=== PATIENT | male | born 2000 | race Hispanic/Latino ===

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

== ENCOUNTER 2020-02-06 20:08 | Inpatient (IN) | payer OTHER ==
[~2020-02-06] VITALS: Ht 177.8 cm; Wt 98.9 kg
[2020-02-06] MEDS ORDERED: SODIUM CHLORIDE 0.9% 1000ML 1,000 ML IV SCH (20:45)
[2020-02-06] MEDS: KETOROLAC TROMETHAMINE 30 MG/ML VIAL IV NR (21:27)
[2020-02-06 21:38] LABS: BASOPHILS # (AUTO) 0.1 (0.0-0.1); BASOPHILS % 0.3 % (0.0-1.0); EOSINOPHILS # (AUTO) 0.1 (0.0-0.4); EOSINOPHILS % 0.3 % (0.0-6.0); HEMATOCRIT 41.5 % (38.2-49.6); LYMPHOCYTES # (AUTO) 2.3 (1.0-3.2); LYMPHOCYTES % 14.9 % (18.0-39.1); MEAN CORPUSCULAR HEMOGLOBIN 30.7 pg (28-32); MEAN CORPUSCULAR HGB CONC 33.7 g/dL (31-35); MONOCYTES # (AUTO) 1.3 (0.2-0.8); MONOCYTES % 8.6 % (4.4-11.3); NEUTROPHILS # (AUTO) 11.4 (2.1-6.9); NEUTROPHILS % 75.6 % (38.7-80.0); PLATELET COUNT 304 x10e3/uL (140-360); RED BLOOD COUNT 4.56 x10e6/uL (4.3-5.7); RED CELL DISTRIBUTION WIDTH 12.9 % (11.7-14.4)
[2020-02-06 21:44] LABS: AMPHETAMINES SCREEN,URINE NEGATIVE (NEGATIVE); BENZODIAZEPINES SCREEN,URINE NEGATIVE (NEGATIVE); BILIRUBIN,URINE NEGATIVE (NEGATIVE); CLARITY,URINE SL CLOUDY (CLEAR); COLOR,URINE YELLOW (YELLOW); KETONES,URINE NEGATIVE (NEGATIVE); LEUKOCYTE ESTERASE ,URINE NEGATIVE (NEGATIVE); NITRITE,URINE NEGATIVE (NEGATIVE); PHENCYCLIDINE SCREEN,URINE NEGATIVE (NEGATIVE); PROTEIN,URINE DIPSTICK NEGATIVE (NEGATIVE); URINE UROBILINOGEN 1 mg/dL (0.2 - 1)
[2020-02-06 21:54] LABS: ALANINE AMINOTRANSFERASE 12 IU/L (0-55); ALBUMIN 3.9 g/dL (3.5-5.0); ALKALINE PHOSPHATASE 100 IU/L (40-150); ANION GAP 12.8 mmol/L (8-16); BLOOD UREA NITROGEN 13 mg/dL (7-26); BUN/CREATININE RATIO 9 (6-25); CALCIUM 9.7 mg/dL (8.4-10.2); CARBON DIOXIDE 26 mmol/L (22-29); CHLORIDE 102 mmol/L (98-107); CREATININE, SERUM 1.37 mg/dL (0.72-1.25); EST GLOMERULAR FILTRATION RATE > 60 ML/MIN (60-); GLUCOSE 92 mg/dL (74-118); POTASSIUM 3.8 mmol/L (3.5-5.1); SODIUM 137 mmol/L (136-145)
[2020-02-06 21:56] LABS: AMORPHOUS SEDIMENT,URINE MANY (FEW); BACTERIA,URINE FEW /HPF
--- NOTE | 2020-02-06 22:17 | Emergency Department Note ---
History of Present Illnes History of Present Illness Chief Complaint: Abdominal Complaints History of Present Illness This is a 20 year old male arrived to the ED with complaints of rt lower quadrant pain for 2 days radiating to his scrotum. Pt also complaining of n/v. Chief Complaint Comment Patient c/o RLQ pain that started Wednesday morning at about 0300. Patient c/o intermittent N/V without fever. No distress noted at this time. Historian: Patient Arrival Mode: Car Onset (how long ago): minute(s) Onset quality: unable to specify Duration (how long): week(s) Timing of current episode: intermittent Progression: waxing and waning Chronicity: new Context: recent surgery, recent immobilization, trauma/injury, new medications, hx of DVT/PE Relieving factors: none Exacerbating factors: movement Past Medical/Family History Physician Review I have reviewed the patient's past medical and family history. Any updates have been documented here. Past Medical History Recent Fever: No Clinical Suspicion of Infectio: No New/Unexplained Change in Ment: No Past Medical History: None Past Surgical History: None Social History Smoking Cessation: Never Smoker Alcohol Use: Occasional Any Illegal Drug Use: No TB Exposure/Symptoms: No Physically hurt or threatened: No Family History Family history of heart diseas: No Other Any Pre-Existing Lines (PICC,: No Is patient up to date on immun: No Review of Systems Review of Systems Constitutional: no symptoms EENTM: no symptoms Cardiovascular: no symptoms Respiratory: no symptoms Gastrointestinal: no symptoms Genitourinary: no symptoms Musculoskeletal: no symptoms, back pain Neurological: no symptoms Psychological: no symptoms Endocrine: no symptoms Hematological/Lymphatic: no symptoms Review of other systems All other systems reviewed and negative. Physical Exam Related Data Allergies: Coded Allergies: No Known Allergies (Unverified , 12/15/17) Triage Vital Signs Vital Signs Date Time Temp Pulse Resp B/P (MAP) Pulse Ox O2 Delivery O2 Flow Rate FiO2 02/06/20 20:33 99.5 86 20 150/80 96 Vital signs reviewed: Yes Physical Exam CONSTITUTIONAL Constitutional: well-developed, well-nourished HENT HENT: normocephalic, atraumatic, oropharynx clear/moist, nose normal HENT L/R: left ext ear normal, right ext ear normal EYES Eyes: PERRL, conjunctivae normal NECK Neck: ROM normal PULMONARY Pulmonary: effort normal, breath sounds normal CARDIOVASCULAR Cardiovascular: regular rhythm, heart sounds normal, capillary refill normal, normal rate GASTROINTESTINAL Abdominal: soft, tender (rt lower quadrant tenderness, +psoas sign ) GENITOURINARY Genitourinary: exam deferred SKIN Skin: warm, dry MUSCULOSKELETAL Musculoskeletal: ROM normal NEUROLOGICAL Neurological: alert, oriented x 3, no gross motor or sensory deficits PSYCHOLOGICAL Psychological: mood/affect normal, judgement normal Results Laboratory Result Diagram: 02/06/20211902/06/202119 Laboratory Laboratory Tests Test 02/06/20 21:20 02/06/20 20:26 White Blood Count 15.15 x10e3/uL (4.8-10.8) Red Blood Count 4.56 x10e6/uL (4.3-5.7) Hemoglobin 14.0 g/dL (14.0-18.0) Hematocrit 41.5 % (38.2-49.6) Mean Corpuscular Volume 91.0 fL (81-99) Mean Corpuscular Hemoglobin 30.7 pg (28-32) Mean Corpuscular Hemoglobin Concent 33.7 g/dL (31-35) Red Cell Distribution Width 12.9 % (11.7-14.4) Platelet Count 304 x10e3/uL (140-360) Neutrophils (%) (Auto) 75.6 % (38.7-80.0) Lymphocytes (%) (Auto) 14.9 % (18.0-39.1) Monocytes (%) (Auto) 8.6 % (4.4-11.3) Eosinophils (%) (Auto) 0.3 % (0.0-6.0) Basophils (%) (Auto) 0.3 % (0.0-1.0) Neutrophils # (Auto) 11.4 (2.1-6.9) Lymphocytes # (Auto) 2.3 (1.0-3.2) Monocytes # (Auto) 1.3 (0.2-0.8) Eosinophils # (Auto) 0.1 (0.0-0.4) Basophils # (Auto) 0.1 (0.0-0.1) Absolute Immature Granulocyte (auto 0.05 x10e3/uL (0-0.1) Sodium Level 137 mmol/L (136-145) Potassium Level 3.8 mmol/L (3.5-5.1) Chloride Level 102 mmol/L (98-107) Carbon Dioxide Level 26 mmol/L (22-29) Anion Gap 12.8 mmol/L (8-16) Blood Urea Nitrogen 13 mg/dL (7-26) Creatinine 1.37 mg/dL (0.72-1.25) Estimat Glomerular Filtration Rate > 60 ML/MIN (60-) BUN/Creatinine Ratio 9 (6-25) Glucose Level 92 mg/dL (74-118) Calcium Level 9.7 mg/dL (8.4-10.2) Total Bilirubin 0.7 mg/dL (0.2-1.2) Aspartate Amino Transf (AST/SGOT) 14 IU/L (5-34) Alanine Aminotransferase (ALT/SGPT) 12 IU/L (0-55) Alkaline Phosphatase 100 IU/L (40-150) Total Protein 7.7 g/dL (6.5-8.1) Albumin 3.9 g/dL (3.5-5.0) Globulin 3.8 g/dL (2.3-3.5) Albumin/Globulin Ratio 1.0 (0.8-2.0) Urine Color Yellow (YELLOW) Urine Clarity Sl cloudy (CLEAR) Urine pH 7.5 (5 - 7) Urine Specific [place] 1.025 (1.010-1.025) Urine Protein Negative (NEGATIVE) Urine Glucose (UA) Negative (NEGATIVE) Urine Ketones Negative (NEGATIVE) Urine Blood Negative (NEGATIVE) Urine Nitrite Negative (NEGATIVE) Urine Bilirubin Negative (NEGATIVE) Urine Urobilinogen 1 mg/dL (0.2 - 1) Urine Leukocyte Esterase Negative (NEGATIVE) Urine RBC None /HPF (0-5) Urine WBC None /HPF (0-5) Urine Epithelial Cells None /LPF (NONE) Urine Amorphous Sediment Many (FEW) Urine Bacteria Few /HPF (NONE) Urine Opiates Screen Negative (NEGATIVE) Urine Methadone Screen Negative (NEGATIVE) Urine Barbiturates Screen Negative (NEGATIVE) Urine Phencyclidine Screen Negative (NEGATIVE) Urine Amphetamines Screen Negative (NEGATIVE) Urine Methamphetamines Screen Negative (NEGATIVE) Urine Benzodiazepines Screen Negative (NEGATIVE) Urine Cocaine Screen Negative (NEGATIVE) Urine Cannabinoids Screen Negative (NEGATIVE) Lab results reviewed: Yes Imaging Imaging results reviewed: Yes Imaging Comments KIDNEYS/URETERS: Hypoenhancement of the right kidney with mild right hydronephrosis and hydroureter. Obstructing 3 mm right distal ureteral stone. Minimal right perinephric stranding. Subcentimeter left renal hypodensities are too small to characterize, but likely represent cysts. GI TRACT: No evidence of wall thickening or distension. Mildly dilated appendix, measuring up to 8 mm without surrounding inflammatory changes. PELVIC ORGANS/BLADDER: Unremarkable. LYMPH NODES: No lymphadenopathy. VESSELS: Unremarkable. PERITONEUM / RETROPERITONEUM: No free air or fluid. BONES AND SOFT TISSUES: Unremarkable. CONCLUSION: Obstructing 3 mm right distal ureteral stone with mild right hydronephrosis. Mildly dilated appendix, measuring up to 8 mm without surrounding inflammatory changes to suggest appendicitis. Diagnostics Tests Diagnostic test(s) reviewed: Yes Critical Care Time Subsequent provider I assumed direction of critical care for this patient from another provider of my specialty. Assessment & Plan Reassessment Reassessment Pt re-evaluated at bedside: informed of all labs/imaging Assessment & Plan Final Impression: (1) Hydronephrosis with urinary obstruction due to ureteral calculus Assessment & Plan 20 M with RLQ pain. concerns for surgical abdomen cbc, cmp CTAP admit IVF, antibitoics Depart Disposition: ADMITTED Last Vital Signs Date Time Temp Pulse Resp B/P (MAP) Pulse Ox O2 Delivery O2 Flow Rate FiO2 02/06/20 21:28 82 151/84 98 02/06/20 20:33 99.5 20 Home Meds No Active Prescriptions or Reported Meds Medications in the ED Sodium Chloride 1,000 ml @ 0 mls/hr Q0M IV Last administered on 02/06/20at 21:27; Admin Dose 999 MLS/HR; Start 02/06/20 at 20:45; Stop 03/07/20 at 20:44 Ketorolac Tromethamine 30 mg ONCE IV Last administered on 02/06/20at 21:27; Admin Dose 30 MG; Start 02/06/20 at 21:00; Stop 02/06/20 at 22:59 BRENT MUSE DO February 06, 2020 22:17
[2020-02-06] MEDS ORDERED: SODIUM CHLORIDE 0.9% 50ML 50 ML ONE (22:28)
[2020-02-06] MEDS ORDERED: IOPAMIDOL 370 MG/ML 200 ML INFUS..BTL INJ ONE (22:28)
--- NOTE | 2020-02-06 22:53 | Diagnostic Imaging Report ---
EXAM: CT Abdomen and Pelvis WITH contrast INDICATION: Abdominal Pain COMPARISON: None. TECHNIQUE: Abdomen and pelvis were scanned utilizing a multidetector helical scanner from the lung base to the pubic symphysis after administration of IV contrast. Coronal and sagittal reformations were obtained. Routine protocol was performed. Scan was performed when during portal venous phase. IV CONTRAST: 100 cc of Isovue-370 ORAL CONTRAST: None COMPLICATIONS: None RADIATION DOSE: Total DLP: 590.9 mGy*cm Estimated effective dose: (DLP x 0.015 x size factor) mSv CTDIvol has been reviewed. It is below the limits set by the Radiation Protocol Committee (RPC). FINDINGS: LINES and TUBES: None. LOWER THORAX: Mild patchy bibasilar opacities, likely atelectasis. HEPATOBILIARY: No evidence of focal lesion. No biliary ductal dilation. GALLBLADDER: No radio-opaque stones or sludge. No wall thickening. SPLEEN: No splenomegaly. PANCREAS: No focal masses or ductal dilatation. ADRENALS: No adrenal nodules KIDNEYS/URETERS: Hypoenhancement of the right kidney with mild right hydronephrosis and hydroureter. Obstructing 3 mm right distal ureteral stone. Minimal right perinephric stranding. Subcentimeter left renal hypodensities are too small to characterize, but likely represent cysts. GI TRACT: No evidence of wall thickening or distension. Mildly dilated appendix, measuring up to 8 mm without surrounding inflammatory changes. PELVIC ORGANS/BLADDER: Unremarkable. LYMPH NODES: No lymphadenopathy. VESSELS: Unremarkable. PERITONEUM / RETROPERITONEUM: No free air or fluid. BONES AND SOFT TISSUES: Unremarkable. CONCLUSION: Obstructing 3 mm right distal ureteral stone with mild right hydronephrosis. Mildly dilated appendix, measuring up to 8 mm without surrounding inflammatory changes to suggest appendicitis. Signed by: Dr. Luna Aburto MD on 02/06/2020 10:50 PM
[2020-02-06] MEDS ORDERED: PIPER-TAZ 3.375 GM 50 ML IV STA (23:01)
[2020-02-06] MEDS ORDERED: ONDANSETRON HCL INJ 2MG/ML 2ML 2 MG/ML VIAL IV PRN (23:15)
[2020-02-06] MEDS ORDERED: MORPHINE SULFATE INJ 4 MG/ML INJ 1ML IV PRN (23:30)
[2020-02-07] VITALS (8 sets, daily range): BP systolic 122–148; BP diastolic 74–85
--- NOTE | 2020-02-07 01:00 | NUR ---
Patient received via stretcher. AAO x 4. Patient had no complaints of pain. Respirations even and non-labored. Admission history obtained. Initial physical assessment conducted. Patient oriented to room, call light and plan of care. Safety measures implemented. Patient instructed to call for assistance when needed. Call light within reach.
--- NOTE | 2020-02-07 07:00 | NUR ---
Patient resting comfortably. No acute distress noted. Walking rounds done. BSSR given to oncoming nurse.
--- NOTE | 2020-02-07 07:20 | NUR ---
The pt. is in bed awake and denies pain or discomfort at this time.
[2020-02-07] MEDS: KETOROLAC TROMETHAMINE 30 MG/ML VIAL IV NR (07:28)
--- NOTE | 2020-02-07 10:25 | NUR ---
Pt. expressed no spiritual or emotional concerns at this time. Pt's mom at bedside. Head Cd Reactor Operator provided hospitality and information on how to reach recreation leader, if needed. No need to follow at this time. IVON ROBERTS Head Cd Reactor Operator Spiritual Care Department O: [phone]
[2020-02-07] MEDS ORDERED: HYDROCODONE/APAP 5MG-325MG TAB PO PRN (13:30)
[2020-02-07] MEDS ORDERED: ACETAMINOPHEN 325 MG TAB PO PRN (13:30)
[2020-02-07] MEDS: SODIUM CHLORIDE 0.9% 1000ML 1,000 ML IV SCH ×2 (14:23→20:47)
[2020-02-07] MEDS: CEFTRIAXONE SOD 1 GM/NS 50 ML 50 ML IV SCH (14:23)
[2020-02-07] MEDS ORDERED: DOCUSATE SODIUM 100 MG CAP PO PRN (14:30)
--- NOTE | 2020-02-07 15:08 | History and Physical ---
CHIEF COMPLAINT: Right flank pain and right lower quadrant abdominal pain. HISTORY OF PRESENT ILLNESS: A 20-year-old male with no past medical history, comes in with complaints of right lower quadrant pain as well as right flank pain ongoing for the last 4 days. He reports that Wednesday morning he woke up noticed having severe pain. Denies any fever, cough, congestion, or any recent travel. Denies any blood in his urine. Reports that his pain has been progressively getting worse and came into the ED for further evaluation and management. He has never experienced any renal stones in the past. CT imaging is consistent with a 3 mm obstructing stone, prompting further evaluation and management. There is some dilation of the appendix, prompting General Surgery consultation as well. The patient was evaluated at bedside, currently doing well with no other issues at this time. REVIEW OF SYSTEMS: Pertinent positive: Right flank pain, right lower quadrant abdominal pain. The rest of 14-point review of systems have been reviewed with the patient and are negative. ALLERGIES: NO KNOWN DRUG ALLERGIES. HOME MEDICATIONS: None. PAST MEDICAL HISTORY: Reports none. PAST SURGICAL HISTORY: None. FAMILY HISTORY: Hypertension, diabetes, and family history of renal stones. SOCIAL HISTORY: He denies drugs, alcohol, or any smoking history. He does have multiple tattoos. PHYSICAL EXAMINATION: VITAL SIGNS: Temperature is 99.1, pulse 72, respiratory rate is 20, blood pressure 140/74, and pulse ox 98% on room air. GENERAL: Not in acute distress. Alert and oriented x3. Cooperative on examination. PULMONARY: Clear to auscultation bilaterally. No wheezing, no rales, no rhonchi, no crackles appreciated. CARDIOVASCULAR: Positive S1 and S2. No murmurs, rubs, or gallops appreciated. ABDOMEN: Tender to palpation in right lower quadrant. Little bit of tenderness in the right flank area. MUSCULOSKELETAL: Strength is 5/5 throughout. No evidence of any muscle deficits on examination. SKIN: Intact. Warm to touch. Good cap refill. PSYCHIATRIC: Normal affect and mood. EXTREMITIES: No edema. Good range of motion throughout. LABORATORY FINDINGS: Show white count 15, hemoglobin 14, hematocrit is 41, and platelets of 304. Chemistry; sodium 137, potassium 3.8, chloride 102, bicarb 26, anion gap of 12, BUN 13, creatinine is 1.37, glucose 92, and calcium 9.7. Total bilirubin is 0.7, AST 14, ALT 12, and alkaline phosphatase 100. Total protein 7.7 and albumin is 3.9. Urinalysis shows some cloudy urine, many sediment noted. Urine drug screen was negative. Serologies; coronavirus PCR pending. IMAGING STUDIES: CT abdomen and pelvis shows obstructing 3 mm right distal ureteral stone with mild right hydronephrosis. Mildly dilated appendix measuring up to 8 mm without surrounding inflammatory changes to suggest appendicitis. IMPRESSION: 1. Right lower quadrant pain as well as right flank pain consistent with a 3 mm obstructing nephrolithiasis. 2. Acute kidney injury. 3. Right kidney hydronephrosis secondary to obstructing stone. PLAN: At this time, continue with aggressive IV fluid hydration including pain control. IV antibiotics. Urology was consulted. General Surgery was consulted for a dilated appendix for further evaluation, but no evidence of appendicitis. This seems to be more related to his kidney stones. We are going to strain his urine. Continue with pain control. He is on a regular diet. Put him on Lovenox for DVT prophylaxis. Cannot put him on ketorolac due to renal failure and acute kidney injury at this time. We will continue to monitor very closely. Discussed plan of care with nursing staff. MD PORSHA Fisher/LENNY /[id number]
[2020-02-07] MEDS: ENOXAPARIN SOD INJ 40 MG/0.4 ML SYR SC SCH (16:49)
[2020-02-07] MEDS: MORPHINE SULFATE 2 MG/ML SYR 1ML IV PRN ×2 (16:53→21:43)
--- NOTE | 2020-02-07 19:40 | NUR ---
RECEIVED PT IN BED AOX4 RESPIRATIONS ARE EVEN AND UNLABORED .RT AC 20 G NS AT 100CC/HR .STRAINING THE URINE ..CALL LIGHT WITH IN EACH .CONTINUE TO MONITOR
--- NOTE | 2020-02-07 20:10 | Consultation ---
DATE OF CONSULTATION: 02/07/2020 Urology Consultation REASON FOR CONSULTATION: Renal colic. HISTORY OF PRESENT ILLNESS: Wili Kidd is a 20-year-old man, who has never had any urological history. He denies any hematuria, dysuria, drug infections or urolithiasis in the past. The patient had severe right-sided flank pain and later it moved down to the right lower quadrant. He also had some nausea without vomiting. He reported to the emergency room where CT scanning revealed obstructing right ureterolithiasis. However, the emergency room physician did not call us. Urological consultation was sought, once the admitting physician evaluated the patient and actually read the reports. The patient's pain has been controlled by the current medication regimen. PAST MEDICAL AND SURGICAL HISTORY: Status post tonsillectomy. FAMILY HISTORY: Significant for urolithiasis in the patient's mom. SOCIAL HISTORY: The patient denies smoking cigarettes and doing drugs. He drinks socially about once a month. He has smoked marijuana in the past, but no other drugs. CURRENT MEDICATIONS: Please refer to the MAR. ALLERGIES: NONE KNOWN. REVIEW OF SYSTEMS: Discussed as above in the history of present illness, past medical history, otherwise negative for all systems. PHYSICAL EXAMINATION: GENERAL: Healthy-appearing 20-year-old man, lying in bed, in no apparent distress. He is currently afebrile. VITAL SIGNS: Currently stable. ABDOMEN: Soft and nondistended. It is tender to deep palpation in the right lower quadrant. GENITOURINARY: Testes descended bilaterally. Testes and epididymides bilaterally palpably normal. The patient has a normal circumcised male phallus with normal meatus without any lesion. Digital rectal examination is deferred at the present time. LABORATORY STUDIES: Urinalysis is unremarkable. White blood cell count 15,150, hemoglobin 14, platelets 304,000. The patient's creatinine is elevated at 1.37. CT scan of the abdomen and pelvis reveals a 3 mm right distal ureteral stone with hydroureteronephrosis and an 8 mm appendix without any inflammation. ASSESSMENT: 1. Right side hydroureteronephrosis. 2. Right ureterolithiasis. 3. Leukocytosis. 4. Presumably acute renal failure. 5. Left probable renal cyst on CT. 6. Right renal colic. 7. Family history of urolithiasis. 8. Nausea that is improved. PLAN: 1. Strain all the urine. 2. IV hydration. 3. Recheck labs in the morning. 4. Stone passage trial. 5. Intravenous antibiotics. 6. Should the patient fail to pass this stone surgical intervention may be warranted. Thank you much for involving us in care of your patient. We will be happy to follow him along with you as well as an outpatient. Lake Watts MD [place]/MODL /[id number] cc: Damian Goyal MD
--- NOTE | 2020-02-07 20:15 | Consultation ---
DATE OF CONSULTATION: 02/07/2020 HISTORY OF PRESENT ILLNESS: The patient is a 20-year-old male who presents with complaints of right lower quadrant abdominal pain. The patient says the pain started 3 days ago in the right flank, then migrated to the right lower quadrant. He had some nausea and vomiting when it first started, then the pain was very severe, he says the pain is less now. He had a CT scan of the abdomen and pelvis which revealed mildly enlarged appendix at 8 mm with no inflammation. Also, right hydronephrosis, right kidney stone. PAST MEDICAL HISTORY: Unremarkable. He has no chronic medical problems. PAST SURGICAL HISTORY: No previous surgeries. MEDICATIONS: There were no current medications. ALLERGIES: NO KNOWN ALLERGIES. FAMILY HISTORY: Noncontributory. SOCIAL HISTORY: The patient does not smoke cigarettes or drink alcohol. REVIEW OF SYSTEMS: As stated above. He has not had any fever. PHYSICAL EXAMINATION: GENERAL: The patient is awake and alert, in no distress. VITAL SIGNS: Normal. HEENT: Sclerae are not icteric. NECK: Has no masses. LUNGS: Equal breath sounds are clear bilaterally. CARDIAC: Regular rate and rhythm. ABDOMEN: Soft. There is very slight right lower quadrant tenderness. There is no mass. There were no signs of peritonitis. EXTREMITIES: No edema. NEUROLOGIC: Grossly intact. ASSESSMENT: A 20-year-old male with abdominal pain, likely secondary to a kidney stone. He does have a mildly enlarged appendix on CT scan, but no inflammation and no findings on exam that suggest acute appendicitis with no signs of peritonitis. PLAN: Recommend consultation with Urology has been ordered with no plans for any surgical intervention from my perspective. Thank you for asking me to see Mr. Kidd. MD PAVITHRA Rodgers/MODL /[id number]
[2020-02-08] VITALS (8 sets, daily range): BP systolic 126–154; BP diastolic 74–98
[2020-02-08] MEDS: SODIUM CHLORIDE 0.9% 1000ML 1,000 ML IV SCH ×3 (04:44→19:20)
--- NOTE | 2020-02-08 06:05 | NUR ---
C/O PAIN XX1 AND GIVEN ORDERED PAIN MEDICATION PT RESTING STRAINING URINE IN PROCESS .CONTINUE TO MONITOR
[2020-02-08 06:36] LABS: BASOPHILS % 0.4 % (0.0-1.0); EOSINOPHILS # (AUTO) 0.1 (0.0-0.4); EOSINOPHILS % 0.8 % (0.0-6.0); HEMATOCRIT 38.6 % (38.2-49.6); HEMOGLOBIN 12.8 g/dL (14.0-18.0); LYMPHOCYTES % 27.2 % (18.0-39.1); MEAN CORPUSCULAR HEMOGLOBIN 30.9 pg (28-32); MEAN CORPUSCULAR HGB CONC 33.2 g/dL (31-35); MEAN CORPUSCULAR VOLUME 93.2 fL (81-99); MONOCYTES # (AUTO) 1.3 (0.2-0.8); MONOCYTES % 11.4 % (4.4-11.3); NEUTROPHILS # (AUTO) 6.7 (2.1-6.9); NEUTROPHILS % 59.8 % (38.7-80.0); PLATELET COUNT 271 x10e3/uL (140-360); RED BLOOD COUNT 4.14 x10e6/uL (4.3-5.7); RED CELL DISTRIBUTION WIDTH 12.6 % (11.7-14.4)
--- NOTE | 2020-02-08 06:44 | NUR ---
Received bedside shift report from off going nurse. Patient is resting in bed, no acute distress noted. Call light within reach. Bed in the lowest position.
--- NOTE | 2020-02-08 06:53 | NUR ---
,BEDSIDE REPORT GIVEN TO THE ONCOMING NURSE
[2020-02-08 07:00] LABS: BLOOD UREA NITROGEN 10 mg/dL (7-26); BUN/CREATININE RATIO 8 (6-25); CALCIUM 9.1 mg/dL (8.4-10.2); CARBON DIOXIDE 25 mmol/L (22-29); CHLORIDE 105 mmol/L (98-107); CREATININE, SERUM 1.22 mg/dL (0.72-1.25); EST GLOMERULAR FILTRATION RATE > 60 ML/MIN (60-); GLUCOSE 86 mg/dL (74-118); SODIUM 138 mmol/L (136-145)
[2020-02-08] MEDS ORDERED: KETOROLAC TROMETHAMINE 30 MG/ML VIAL IV ONE (10:00)
[2020-02-08] MEDS ORDERED: ONDANSETRON HCL 4 MG ORAL DISINTEGRATING TAB PO PRN (10:15)
[2020-02-08] MEDS: CEFTRIAXONE SOD 1 GM/NS 50 ML 50 ML IV SCH (13:27)
--- NOTE | 2020-02-08 14:47 | Diagnostic Imaging Report ---
X-ray abdomen KUB Comparison: CT from 02/06/2020 History: Right ureteric calculus Findings: Nonobstructive bowel gas pattern. Persistent right renal enhancement (nephrogram) persistence of contrast medium in moderately distended right renal collecting system. The contrast column can be traced down to the distal ureter where it comes to abrupt termination just above the UVJ. There is presence of contrast medium in the urinary bladder. Regional bones are unremarkable. Impression: Findings consistent with persistent obstruction of the distal right ureter. Signed by: Rachid Carlson MD on 02/08/2020 2:44 PM
[2020-02-08] MEDS: ENOXAPARIN SOD INJ 40 MG/0.4 ML SYR SC SCH (16:32)
--- NOTE | 2020-02-08 19:09 | NUR ---
BEDSIDE SHIFT REPORT GIVEN TO ONCOMING NURSE. PATIENT IS IN STABLE CONDITION, NO ACUTE DISTRESS NOTED AT THIS TIME. CALL LIGHT WITHIN REACH. BED IN THE LOWEST POSITION.
[2020-02-08] MEDS: KETOROLAC TROMETHAMINE 30 MG/ML VIAL IV PRN (19:20)
--- NOTE | 2020-02-08 20:00 | NUR ---
RECEIVED PT IN BED AOX4 RESPIRATIONS ARE EVEN AND UNLABORED .RT AC 20 G NS AT 150 CC/HR .STRAINING THE URINE ..CALL LIGHT WITH IN EACH . C/O PAIN CONTINUE TO MONITOR
--- NOTE | 2020-02-08 23:06 | Progress Note ---
DATE: 02/08/2020 Medicine Progress Note SUBJECTIVE: The patient was evaluated early this afternoon approximately around 1:40 p.m. He is in the process of getting a KUB for evaluation of the stone. It seems he will be undergoing a cystoscopy for stone retrieval tomorrow. His pain is a little better with no complaints. OBJECTIVE: VITAL SIGNS: Temperature is 99.3, pulse 79, respiratory rate is 18, blood pressure 138/76, pulse ox 97% on room air. GENERAL: In no acute distress, alert and oriented x3. Cooperative on examination. HEENT: Head is normocephalic and atraumatic. Eyes; pupils are equal, round, and reactive to light bilaterally. PULMONARY: Clear to auscultation bilaterally. No wheezing, rales, or rhonchi. No crackles appreciated. CARDIOVASCULAR: Positive S1 and S2. No murmurs, rubs, or gallops appreciated. ABDOMEN: Soft, nondistended, and nontender to palpation. Bowel sounds present. MUSCULOSKELETAL: Strength is 5/5 throughout. No evidence of any muscle deficits on examination. No weakness appreciated. NEUROLOGIC: Cranial nerves II through XII grossly intact. No evidence of any neurological deficits on exam. SKIN: Intact, warm to touch. Good cap refill. PSYCHIATRIC: Normal affect and mood. EXTREMITIES: No edema. Good range of motion throughout. LABORATORY DATA: Show white count 11, hemoglobin 12.8, hematocrit 38.6, and platelets of 271. Chemistry; sodium 138, potassium 4, chloride 105, bicarb 25, anion gap of 12, BUN is 10, creatinine is 1.2, and uric acid is 4.9. His PTH are all pending. Calcium is 9.1. LFTs within normal range. Urinalysis was negative. Urine drug screen was negative. SEROLOGY: Coronavirus PCR was found to be negative. IMAGING STUDIES: Abdominal x-ray showed findings consistent with persistent obstruction of the distal right ureter. IMPRESSION: 1. Right lower quadrant pain secondary to an obstructing distal ureteral stone 3 mm in size. 2. Acute kidney injury. 3. Right kidney hydronephrosis secondary to obstructive stone. PLAN: At this time, labs reviewed and stable. Continue with aggressive IV fluid hydration. Pain control. We will change to IV Toradol p.r.n. Get repeat labs in the morning. KUB noted. It seems he is scheduled for tomorrow for cystoscopy with stone retrieval by Urology. Get a.m. labsJane Braun for DVT prophylaxis. Discussed plan of care with nursing staff. MD PORSHA Fisher/MODL /[id number]
[2020-02-09] VITALS (8 sets, daily range): BP systolic 125–150; BP diastolic 62–81
[2020-02-09] MEDS: SODIUM CHLORIDE 0.9% 1000ML 1,000 ML IV SCH ×3 (03:02→12:47)
--- NOTE | 2020-02-09 04:46 | NUR ---
PT RESTED DURING THE NIGHT .PT IS NPO FOR CYSTOSCOPY .CALL LIGHT WITH IN REACH .CONTINUE TO MONITOR
[2020-02-09 06:35] LABS: BASOPHILS % 0.4 % (0.0-1.0); EOSINOPHILS # (AUTO) 0.2 (0.0-0.4); EOSINOPHILS % 1.9 % (0.0-6.0); HEMATOCRIT 37.2 % (38.2-49.6); HEMOGLOBIN 12.5 g/dL (14.0-18.0); LYMPHOCYTES # (AUTO) 2.4 (1.0-3.2); LYMPHOCYTES % 26.6 % (18.0-39.1); MEAN CORPUSCULAR HGB CONC 33.6 g/dL (31-35); MEAN CORPUSCULAR VOLUME 92.3 fL (81-99); MONOCYTES % 10.7 % (4.4-11.3); NEUTROPHILS # (AUTO) 5.4 (2.1-6.9); NEUTROPHILS % 60.1 % (38.7-80.0); PLATELET COUNT 276 x10e3/uL (140-360); RED BLOOD COUNT 4.03 x10e6/uL (4.3-5.7); RED CELL DISTRIBUTION WIDTH 12.6 % (11.7-14.4)
--- NOTE | 2020-02-09 06:44 | NUR ---
RECEIVED BEDSIDE SHIFT REPORT FROM OFF GOING NURSE. PATIENT IS RESTING IN BED, NO S/S OF DISTRESS NOTED. CALL LIGHT WITHIN REACH. BED IN THE LOWEST POSITION.
--- NOTE | 2020-02-09 06:46 | NUR ---
BEDSIDE REPORT GIVEN TO THE ONCOMING NURSE
[2020-02-09 06:53] LABS: ANION GAP 10.9 mmol/L (8-16); BLOOD UREA NITROGEN 8 mg/dL (7-26); BUN/CREATININE RATIO 10 (6-25); CALCIUM 8.7 mg/dL (8.4-10.2); CARBON DIOXIDE 25 mmol/L (22-29); CHLORIDE 109 mmol/L (98-107); CREATININE, SERUM 0.83 mg/dL (0.72-1.25); EST GLOMERULAR FILTRATION RATE > 60 ML/MIN (60-); GLUCOSE 97 mg/dL (74-118); POTASSIUM 3.9 mmol/L (3.5-5.1); SODIUM 141 mmol/L (136-145)
[2020-02-09] MEDS: KETOROLAC TROMETHAMINE 30 MG/ML VIAL IV PRN (07:18)
--- NOTE | 2020-02-09 11:52 | NUR ---
Patient off unit for procedure at this time.
[2020-02-09] MEDS ORDERED: B&O 60MG R/S 60 MG SUPP PR ONE (12:13)
[2020-02-09] MEDS ORDERED: IOPAMIDOL 300MG/ML 50ML INFUS..BTL IV ONE (12:14)
[2020-02-09] MEDS ORDERED: MEPERIDINE HCL INJ 25 MG/ML VIAL ONE (13:14)
[2020-02-09] MEDS ORDERED: HYDRALAZINE HCL 20 MG/ML VIAL ONE (13:50)
--- NOTE | 2020-02-09 14:04 | NUR ---
PATIENT BACK TO UNIT AT THIS TIME. HE IS IN STABLE CONDITION. WILL CONTINUE TO MONITOR.
[2020-02-09] MEDS: CEFTRIAXONE SOD 1 GM/NS 50 ML 50 ML IV SCH (14:33)
[2020-02-09] MEDS: ENOXAPARIN SOD INJ 40 MG/0.4 ML SYR SC SCH (16:04)
[2020-02-09] MEDS ORDERED: LIDOCAINE HCL 2% LOCAL INJ 5 ML SDV VIAL INJ ONE (18:31)
[2020-02-09] MEDS ORDERED: ETOMIDATE 2 MG/ML 10 ML INJ IV ONE (18:31)
[2020-02-09] MEDS ORDERED: CEFTRIAXONE SOD 1 GM VIAL ONE (18:31)
[2020-02-09] MEDS ORDERED: SEVOFLURANE INHAL SOLN 250 ML PEN BTL ONE (18:31)
[2020-02-09] MEDS ORDERED: ONDANSETRON HCL INJ 2MG/ML 2ML 2 MG/ML VIAL ONE (18:31)
[2020-02-09] MEDS ORDERED: DEXAMETHASONE SOD PHOS INJ 4 MG/ML VIAL ONE (18:31)
--- NOTE | 2020-02-09 18:50 | NUR ---
Bedside shift report given to oncoming nurse. Patient is resting in bed, no acute distress noted at this time. Call light within reach. Bed in the lowest position.
--- NOTE | 2020-02-09 21:49 | NUR ---
Patient discharged home in stable condition, no s/s of distress at this time. Written instructions given with prescriptions. Provided patient education and assessed learning barriers. Patient verbalized understanding.
--- NOTE | 2020-02-10 04:37 | Discharge Summary ---
FINAL DISCHARGE DIAGNOSES: 1. Right obstructing distal ureteral stone, status post cystoscopy with dilation of stricture, stone manipulation and right stent placement with a retrograde pyelogram. 2. Right-sided hydronephrosis secondary to obstructing stone. 3. Mild dilation of the appendix 8 mm with no inflammation-no further workup needed by General Surgery. 4. Acute kidney injury secondary to obstructing stone-resolved. CONSULTANTS: Urology, General Surgery. PHYSICAL EXAMINATION: VITAL SIGNS: Temperature is 99, pulse 77, respiratory rate 20, blood pressure 126/69, pulse ox 97% on room air. LABORATORY DATA: White count 9, hemoglobin 12.5, hematocrit 37, platelets of 276. Chemistry; sodium 141, potassium 3.9, chloride 109, bicarb 25, anion gap of 10. BUN is 8, creatinine is 0.83, on admission was 1.37, 1.33, then 0.83. Glucose was 97, calcium was 8.7, uric acid 4.9. LFTs; total bilirubin was 0.7, AST 14, ALT 12, alkaline phosphatase 100, total protein 7.7, albumin 3.9, PTH was 12. Urinalysis negative. Urine drug screen negative. Durán virus PCR negative. Microbiology, none. IMAGING STUDIES: CT of abdomen and pelvis shows obstructing 3 mm right distal ureteral stone with right mild hydronephrosis. Mildly dilated appendix measuring 8 mm without any surrounding inflammation, changes did suggest appendicitis. Abdominal x-ray shows findings consistent with persistent obstruction of the distal right ureter. HOSPITAL COURSE: A 20-year-old male came into the ED with complaints of right lower quadrant abdominal pain, found to have an obstructing stone seen on CT imaging findings. CT of abdomen and pelvis with contrast shows obstructing 3 mm right distal ureteral stone with right mild hydronephrosis. It also showed evidence of a mildly dilated appendix 8 mm, prompting General Surgery and Urology consultation. As per General Surgery, no further workup was needed. This is not inflamed. No evidence of appendicitis. As per Urology, the patient underwent status post cystoscopy with retrograde pyelogram with a right ureteral stent placement and stone manipulation on 02/09/2020 by Urology. The patient maintained on IV antibiotics while here in the hospital stay. His white count was elevated on admission, then downtrended to normal prior to being discharged. He was afebrile with no complaints. His creatinine was slightly elevated on admission at 1.37 downtrended to 0.83 back to normal, likely secondary to his underlying stone obstruction. On discharge, the patient was doing well with no complaints. He was cleared for discharge by all consultants. On the day of discharge, vital signs were stable, labs reviewed and stable. The patient was seen and evaluated and examined thoroughly on the day of discharge, no other complaints. The patient verbalized understanding and agrees to plan of care to follow up accordingly as an outpatient with primary care physician in 1 week and urologist in 7-10 days. MEDICATIONS: See med reconciliation form including Tylenol No. 3 as well as Omnicef for 5 additional days. CONDITION: Stable. DIET: Heart healthy. In the event of any worsening symptoms, the patient was advised to come back to the ED for further evaluation. Discharge summary took greater than 35 minutes. MD PORSHA Fisher/LENNY /[id number]
--- NOTE | 2020-02-11 00:35 | Operative Report ---
DATE OF PROCEDURE: 02/09/2020 SURGEON: Lake Watts MD PREOPERATIVE DIAGNOSES: 1. Right ureterolithiasis. 2. Right hydronephrosis. 3. Acute renal failure. POSTOPERATIVE DIAGNOSES: 1. Right ureterolithiasis. 2. Right hydronephrosis. 3. Acute renal failure. 4. Right distal ureteral stricture. OPERATIONS PERFORMED: 1. Cystourethroscopy with bilateral ureteral catheterization and retrograde ureteropyelography (separate procedure performed to evaluate the upper tract in light of the acute renal failure). 2. Interpretation of retrograde ureteropyelography, no radiologist present. 3. Supervision of fluoroscopy, no radiologist present. 4. Right ureteroscopy with calibration and dilation of distal ureteral stricture (separate procedure performed for the diagnosis of stricture). 5. Right ureteroscopy with stone manipulation (separate procedure performed for the ureterolithiasis). 6. Cystourethroscopy with insertion of right indwelling ureteral stent (separate procedure performed to relieve the hydronephrosis). 7. Urological services with supervision and interpretation of ureteroscopy, no radiologist present. ANESTHESIA: General. COMPLICATIONS: None. CLINICAL SUMMARY: Wili Kidd is a 20-year-old man with persistent renal colic. He has failed to pass the stone despite intravenous fluids, analgesics, antibiotics. The patient is brought to the operating room for the above procedures. He and his mother are aware of the risks of bleeding, infection, injury to adjacent structures, and they understand how a temporary indwelling ureteral stent requires followup and removal. They understood all these risks and elected to proceed. The patient's KUB one day after his CT which was done with contrast at the decision of the emergency room physician revealed retained contrast within the right collecting system, consistent with high-grade obstruction. This procedure is in no way elective and needs to be performed during the COVID-19 situation. OPERATIVE PROCEDURE IN DETAIL: Informed consent was verified. Wili Kidd was properly identified, taken to the operating room, placed on the cystoscopy table in supine position. Anesthesia was uneventfully begun. The patient was then carefully and gently repositioned in the dorsal lithotomy position with all pressure points well padded. His genitalia were prepared and draped in the usual sterile fashion. The cystoscope sheath with the visual obturator in place was atraumatically inserted into the patient's urethra, was guided down the unremarkable urethra through the normal prostate bed into the patient's bladder. Panendoscopy revealed no suspicious mucosal lesions, no tumors, no stones, no diverticula, and normally positioned and configured ureteral orifices were identified. Ureteral catheter was used to cannulate the left ureter and retrograde ureteropyelogram was performed. It was then inserted in the right ureter and retrograde ureteral pyelogram was performed. A guidewire was then negotiated into the right ureter and guided to the level of the patient's kidney. The ureteroscope was then placed alongside the guidewire and guided into the right ureteral orifice, but proximal to that, there was a stricture. We did not want to traumatize the ureter. We then utilized a flexible ureteroscopy sheath as a coaxial dilator. We gently dilated the distal ureter. Then, we were able to pass the ureteroscope easily through this now-dilated region and also further dilating it with a semi-rigid ureteroscope. This in-stent dilation allowed the ureteroscope to manipulate the stone and upon withdrawing the ureteroscope, the stone jetted out the ureter, thus manipulating it out into the bladder. With cystoscopic fluoroscopic guidance, a right-sided indwelling ureteral stent was then placed. It was coiled in the patient's kidney as well as the patient's bladder. The retaining suture was cut short. Interpretation of retrograde ureteropyelography contrast was instilled in retrograde fashion bilaterally. The left side was unremarkable. There were no tumors, no stones, no diverticula, no hydronephrosis. The right side exhibited distal obstruction with proximal hydroureteronephrosis. The stent was in good position, coiled in the patient's kidney as well as the patient's bladder at the end of the case. The patient's bladder was drained. The scope was withdrawn. Belladonna and opium suppository was placed revealing a 15 g prostate that is smooth, nonfluctuant, without any nodules. The patient was then uneventfully reversed from anesthesia and taken to recovery room in stable condition. There were no complications to the procedure. He tolerated the procedure well. Estimated blood loss was minimal. Specimens included distal ureteral stone, chemical analysis. PLANS: Will be to discharge the patient home once adequate pain control is achieved. We will then follow the patient up in approximately a month to remove his stent, perform ureteroscopy, ensure everything is healed and of course, follow the patient up on a long-term basis including the performance of the metabolic stone workup. MD RUDDY Linares/LENNY /[id number] cc: Dr. Damian Goyal
== END 2020-02-09 21:49 | disposition home or self-care (01) | DRG 661 ==
LOC: ER 20:08 → ERHOLD 23:23 → MED/SURG3 02-07 00:37 → OBSVTOIN 02-07 13:59
PROVIDERS: ADMIT Internal Medicine; ATTEND Internal Medicine
PROC: 0T778ZZ Dilation of Left Ureter, Via Natural or Artificial Opening Endoscopic (ICD-10-PCS; 2020-02-09)
PROC: BT141ZZ Fluoroscopy of Kidneys, Ureters and Bladder using Low Osmolar Contrast (ICD-10-PCS; 2020-02-09)
PROC: 0T7D8DZ Dilation of Urethra with Intraluminal Device, Via Natural or Artificial Opening Endoscopic (ICD-10-PCS; 2020-02-09)
PROC: 0TC68ZZ Extirpation of Matter from Right Ureter, Via Natural or Artificial Opening Endoscopic (ICD-10-PCS; principal; 2020-02-09 13:30)
PROC: 0T768DZ Dilation of Right Ureter with Intraluminal Device, Via Natural or Artificial Opening Endoscopic (ICD-10-PCS; 2020-02-09 13:30)
DX: N13.2 Hydronephrosis with renal and ureteral calculous obstruction (principal); N17.9 Acute kidney failure, unspecified; N35.919 Unspecified urethral stricture, male, unspecified site; D64.9 Anemia, unspecified; N28.1 Cyst of kidney, acquired; N23 Unspecified renal colic; R11.0 Nausea; D72.829 Elevated white blood cell count, unspecified
CPT/HCPCS: 36415; 74018; 74177; 74420; 80048; 80053; 80307; 81001; 83970; 84550; 85025; 87635; 88300; 96374; 99284; C1766; C1769; C2617; G0378; J0360; J0696; J1100; J1650; J1885; J2001; J2175; J2270; J2405; J2543; J7030; Q9967

== ENCOUNTER 2020-03-01 05:29 | Emergency (ER) | payer OTHER ==
[~2020-03-01] VITALS: Ht 177.8 cm; Wt 98.9 kg
[2020-03-01] MEDS ORDERED: KETOROLAC TROMETHAMINE 30 MG/ML VIAL IV STA (05:50)
--- NOTE | 2020-03-01 05:56 | Emergency Department Note ---
History of Present Illnes History of Present Illness Chief Complaint: Abdominal Complaints History of Present Illness This is a 20 year old male SENT TO ED BY DR. WATTS TO HAVE STENT REMOVED BY DR. WATTS; PT REPORTS UMBILICAL PAIN SINCE STENT PLACEMENT 2 WEEKS AGO; PT STATES, "DR. WATTS'S OFFICE CALLED AND TOLD US TO COME TO THE ER THIS MORNING BECAUSE ANOTHER PATIENT'S SURGERY HAD BEEN CANCELLED AND I COULD TAKE THEIR SURGERY SPOT. Historian: Patient, Family Member Arrival Mode: Car Onset (how long ago): week(s) (2) Location: RIGHT SIDE, PERIUMBILICAL Quality: PAIN Radiation: Reports non-radiation Severity: moderate Onset quality: gradual Duration (how long): week(s) (2) Timing of current episode: constant Progression: unchanged Chronicity: new Context: Reports recent surgery (URETERAL STEN PLACMENT 3 WEEKS AGO); Denies recent illness Relieving factors: none Exacerbating factors: none Associated symptoms: Reports denies other symptoms Treatments prior to arrival: none Past Medical/Family History Physician Review I have reviewed the patient's past medical and family history. Any updates have been documented here. Past Medical History Recent Fever: No Clinical Suspicion of Infectio: No New/Unexplained Change in Ment: No Past Medical History: None, Kidney Stones Past Surgical History: Appendectomy Social History Smoking Cessation: Never Smoker Counseling Performed: No Alcohol Use: None Any Illegal Drug Use: No TB Exposure/Symptoms: No Physically hurt or threatened: No Family History Family history of heart diseas: No Other Last Tetanus: UTD Any Pre-Existing Lines (PICC,: No Is patient up to date on immun: Yes Last Flu: DENIES Last Pneumovax: DENIES Review of Systems Review of Systems Constitutional: Reports no symptoms EENTM: Reports no symptoms Cardiovascular: Reports no symptoms Respiratory: Reports no symptoms Gastrointestinal: Reports as per HPI Genitourinary: Reports as per HPI Musculoskeletal: Reports no symptoms Integumentary: Reports no symptoms Neurological: Reports no symptoms Psychological: Reports no symptoms Endocrine: Reports no symptoms Hematological/Lymphatic: Reports no symptoms Physical Exam Related Data Allergies: Coded Allergies: No Known Allergies (Unverified , 12/15/17) Triage Vital Signs Vital Signs Date Time Temp Pulse Resp B/P (MAP) Pulse Ox O2 Delivery O2 Flow Rate FiO2 03/01/20 05:37 98.4 82 17 142/87 98 Vital signs reviewed: Yes Physical Exam CONSTITUTIONAL Constitutional: Reports well-developed, Reports well-nourished HENT HENT: Reports normocephalic, Reports atraumatic, Reports oropharynx clear/moist, Reports nose normal HENT L/R: Reports left ext ear normal, Reports right ext ear normal EYES Eyes: Reports PERRL, Reports conjunctivae normal NECK Neck: Reports ROM normal PULMONARY Pulmonary: Reports effort normal, Reports breath sounds normal CARDIOVASCULAR Cardiovascular: Reports regular rhythm, Reports heart sounds normal, Reports capillary refill normal, Reports normal rate GASTROINTESTINAL Abdominal: Reports soft, Reports nontender, Reports bowel sounds normal, Reports right CVA tenderness (MILD) GENITOURINARY Genitourinary: Reports exam deferred SKIN Skin: Reports warm, Reports dry MUSCULOSKELETAL Musculoskeletal: Reports ROM normal NEUROLOGICAL Neurological: Reports alert, Reports oriented x 3, Reports no gross motor or sensory deficits PSYCHOLOGICAL Psychological: Reports mood/affect normal, Reports judgement normal Results Laboratory Laboratory Laboratory Tests Test 03/01/20 05:45 White Blood Count 8.98 x10e3/uL (4.8-10.8) Red Blood Count 4.62 x10e6/uL (4.3-5.7) Hemoglobin 14.2 g/dL (14.0-18.0) Hematocrit 42.1 % (38.2-49.6) Mean Corpuscular Volume 91.1 fL (81-99) Mean Corpuscular Hemoglobin 30.7 pg (28-32) Mean Corpuscular Hemoglobin Concent 33.7 g/dL (31-35) Red Cell Distribution Width 12.7 % (11.7-14.4) Platelet Count 338 x10e3/uL (140-360) Neutrophils (%) (Auto) 50.5 % (38.7-80.0) Lymphocytes (%) (Auto) 37.6 % (18.0-39.1) Monocytes (%) (Auto) 8.6 % (4.4-11.3) Eosinophils (%) (Auto) 2.6 % (0.0-6.0) Basophils (%) (Auto) 0.4 % (0.0-1.0) Neutrophils # (Auto) 4.5 (2.1-6.9) Lymphocytes # (Auto) 3.4 (1.0-3.2) Monocytes # (Auto) 0.8 (0.2-0.8) Eosinophils # (Auto) 0.2 (0.0-0.4) Basophils # (Auto) 0.0 (0.0-0.1) Absolute Immature Granulocyte (auto 0.03 x10e3/uL (0-0.1) Urine Color [place] (YELLOW) Urine Clarity Sl cloudy (CLEAR) Urine pH 6 (5 - 7) Urine Specific [place] >=1.030 (1.010-1.025) Urine Protein 2+ (NEGATIVE) Urine Glucose (UA) Negative (NEGATIVE) Urine Ketones Negative (NEGATIVE) Urine Blood Large (NEGATIVE) Urine Nitrite Negative (NEGATIVE) Urine Bilirubin Negative (NEGATIVE) Urine Urobilinogen 0.2 mg/dL (0.2 - 1) Urine Leukocyte Esterase Trace (NEGATIVE) Urine RBC 21-50 /HPF (0-5) Urine WBC 21-50 /HPF (0-5) Urine Epithelial Cells Few /LPF (NONE) Urine Bacteria Rare /HPF (NONE) Sodium Level 141 mmol/L (136-145) Potassium Level 3.7 mmol/L (3.5-5.1) Chloride Level 107 mmol/L (98-107) Carbon Dioxide Level 23 mmol/L (22-29) Anion Gap 14.7 mmol/L (8-16) Blood Urea Nitrogen 14 mg/dL (7-26) Creatinine 0.82 mg/dL (0.72-1.25) Estimat Glomerular Filtration Rate > 60 ML/MIN (60-) BUN/Creatinine Ratio 17 (6-25) Glucose Level 101 mg/dL (74-118) Calcium Level 9.5 mg/dL (8.4-10.2) Total Bilirubin 0.2 mg/dL (0.2-1.2) Aspartate Amino Transf (AST/SGOT) 12 IU/L (5-34) Alanine Aminotransferase (ALT/SGPT) 13 IU/L (0-55) Alkaline Phosphatase 98 IU/L (40-150) Total Protein 7.6 g/dL (6.5-8.1) Albumin 4.0 g/dL (3.5-5.0) Globulin 3.6 g/dL (2.3-3.5) Albumin/Globulin Ratio 1.1 (0.8-2.0) Lab results reviewed: Yes Assessment & Plan Medical Decision Making MDM Patient presents to ER after being told by Dr. Watts to come the ER this morning to have removal of her ureteral stent was placed 3 weeks ago. CBC, CMP, UA, KUB ordered to eval for leukocytosis, renal insufficiency, UTI, stent displacement Toradol 30 mg IV ordered. PT WITH INFECTED URETERAL STENT, NO BEDS AT THIS FACILITY, THIS FACILITY [facility], I SPOKE WITH DR DE LEON AND DR WATTS. TRANSFER PT TO [facility] Assessment & Plan Final Impression: (1) Infection associated with indwelling ureteral stent (2) UTI (urinary tract infection) Depart Disposition: TRANS TO OTHER [facility] F[facility] Last Vital Signs Date Time Temp Pulse Resp B/P (MAP) Pulse Ox O2 Delivery O2 Flow Rate FiO2 03/01/20 05:37 98.4 82 17 142/87 98 Home Meds No Active Prescriptions or Reported Meds Medications in the ED Ketorolac Tromethamine 30 mg ONCE STAT IV ; Start 03/01/20 at 05:50; Stop 03/01/20 at 05:52; Status DC LAWANDA CRANE MD Mar 01, 2020 05:56
[2020-03-01 06:41] LABS: CLARITY,URINE SL CLOUDY (CLEAR); COLOR,URINE ORANGE (YELLOW)
[2020-03-01 06:42] LABS: LEUKOCYTE ESTERASE ,URINE TRACE (NEGATIVE); NITRITE,URINE NEGATIVE (NEGATIVE); PROTEIN,URINE DIPSTICK 2+ (NEGATIVE)
[2020-03-01 06:43] LABS: BILIRUBIN,URINE NEGATIVE (NEGATIVE); KETONES,URINE NEGATIVE (NEGATIVE); URINE UROBILINOGEN 0.2 mg/dL (0.2 - 1)
[2020-03-01 06:45] LABS: BASOPHILS % 0.4 % (0.0-1.0); EOSINOPHILS # (AUTO) 0.2 (0.0-0.4); EOSINOPHILS % 2.6 % (0.0-6.0); HEMATOCRIT 42.1 % (38.2-49.6); HEMOGLOBIN 14.2 g/dL (14.0-18.0); LYMPHOCYTES # (AUTO) 3.4 (1.0-3.2); LYMPHOCYTES % 37.6 % (18.0-39.1); MEAN CORPUSCULAR HEMOGLOBIN 30.7 pg (28-32); MEAN CORPUSCULAR HGB CONC 33.7 g/dL (31-35); MEAN CORPUSCULAR VOLUME 91.1 fL (81-99); MONOCYTES # (AUTO) 0.8 (0.2-0.8); MONOCYTES % 8.6 % (4.4-11.3); NEUTROPHILS # (AUTO) 4.5 (2.1-6.9); NEUTROPHILS % 50.5 % (38.7-80.0); PLATELET COUNT 338 x10e3/uL (140-360); RED BLOOD COUNT 4.62 x10e6/uL (4.3-5.7); RED CELL DISTRIBUTION WIDTH 12.7 % (11.7-14.4)
[2020-03-01 06:52] LABS: ALANINE AMINOTRANSFERASE 13 IU/L (0-55); ALBUMIN/GLOBULIN RATIO 1.1 (0.8-2.0); ALKALINE PHOSPHATASE 98 IU/L (40-150); ANION GAP 14.7 mmol/L (8-16); BLOOD UREA NITROGEN 14 mg/dL (7-26); BUN/CREATININE RATIO 17 (6-25); CALCIUM 9.5 mg/dL (8.4-10.2); CARBON DIOXIDE 23 mmol/L (22-29); CHLORIDE 107 mmol/L (98-107); CREATININE, SERUM 0.82 mg/dL (0.72-1.25); EST GLOMERULAR FILTRATION RATE > 60 ML/MIN (60-); GLUCOSE 101 mg/dL (74-118); POTASSIUM 3.7 mmol/L (3.5-5.1); SODIUM 141 mmol/L (136-145)
--- NOTE | 2020-03-01 06:57 | NUR ---
TRANSFER INITIATED TO [facility] FOR ADMISSION TO DR. Josy DE LEON WITH CONSULT FOR DR. Malcolm COATES
[2020-03-01] MEDS ORDERED: CEFTRIAXONE SOD 1 GM/NS 50 ML 50 ML IV ONE (07:00)
[2020-03-01 07:01] LABS: BACTERIA,URINE RARE /HPF; EPITHELIAL CELLS,URINE FEW /LPF; RBC,URINE 21-50 /HPF (0-5); WBC,URINE (MAN) 21-50 /HPF (0-5)
--- NOTE | 2020-03-01 07:19 | NUR ---
CALLED [facility] FOR TRANSPORT
--- NOTE | 2020-03-01 08:17 | NUR ---
report to [facility]
== END 2020-03-01 08:38 | disposition other institution (70) ==
LOC: ER 05:29
DX: R10.33 Periumbilical pain (principal); N28.89 Other specified disorders of kidney and ureter; N39.0 Urinary tract infection, site not specified
CPT/HCPCS: 36415; 80053; 81001; 85025; 87086; 99284; J0696; J1885

== ENCOUNTER → 2020-07-30 | Outpatient (CLI) | payer OTHER ==
--- NOTE | 2020-07-31 08:46 | Diagnostic Imaging Report ---
Sinus series, 4 views. History: Left-sided pressure. Findings: The maxillary, ethmoid, sphenoid, and frontal sinuses are normally aerated. There is no evidence of mucoperiosteal thickening or air-fluid level. Visualized bones are unremarkable. IMPRESSION: Normal sinus series. Signed by: Armen Serrano on 07/31/2020 8:43 AM
== END ==
LOC: RAD 14:08
PROVIDERS: ATTEND Internal Medicine
DX: J32.3 Chronic sphenoidal sinusitis (principal)
CPT/HCPCS: 70220

== ENCOUNTER 2020-12-26 19:46 | Emergency (ER) | payer OTHER ==
[~2020-12-26] VITALS: Ht 177.8 cm; Wt 98.9 kg
== END 2020-12-26 20:51 | disposition home or self-care (01) ==
LOC: ER 19:53
DX: H60.92 Unspecified otitis externa, left ear (principal)
CPT/HCPCS: 99282

== ENCOUNTER 2024-07-01 19:03 | Emergency (ER) | payer SELFPAY ==
[~2024-07-01] VITALS: Ht 177.8 cm; Wt 98.9 kg
[2024-07-01 19:34] VITALS: PULSE 79; RESP 18; TEMP 98; O2SAT 99
[2024-07-01] MEDS ORDERED: ULTRAM 50MG50 MG PO (20:55)
== END 2024-07-01 21:08 | disposition home or self-care (01) ==
LOC: FSED 19:09
DX: S62.634A Displaced fracture of distal phalanx of right ring finger, initial encounter for closed fracture (principal); W20.8XXA Other cause of strike by thrown, projected or falling object, initial encounter; Y93.B3 Activity, free weights; Y92.89 Other specified places as the place of occurrence of the external cause; F41.9 Anxiety disorder, unspecified; F32.A Depression, unspecified; Z87.442 Personal history of urinary calculi
CPT/HCPCS: 99282